=== PATIENT | female | born 1965 | race Caucasian/White ===

== ENCOUNTER 2021-09-16 07:30 | Outpatient (RCR) | payer OTHER, SELFPAY | END 2021-12-31 14:59 | disposition home or self-care (01) | PROVIDERS: PCP Family Medicine; Visit Provider Orthopaedic Surgery | DX: M25.561 Pain in right knee (principal); Z51.89 Encounter for other specified aftercare | CPT/HCPCS: 97110 ==

== ENCOUNTER 2022-04-01 13:59 | Emergency (ER) | payer OTHER, SELFPAY ==
[2022-04-01 14:08] VITALS: BP 154/90; PULSE 69; RESP 16; TEMP 36.4; O2SAT 99
--- NOTE | 2022-04-01 15:02 | CRLHL7_ITS ---
For Patients: As a result of the Cures Act, medical imaging exams and procedure reports are released immediately into your electronic medical record. You may view this report before your referring provider. If you have questions, please contact your health care provider. INDICATION: Balance problems. Near syncopal spells. Blurred vision. TECHNIQUE: Sagittal T1, axial FLAIR, T2, diffusion-weighted and susceptibility weighted images. COMPARISON: MRI brain dated 04/19/2019. FINDINGS: Ventricles normal in size and shape. No evidence of recent ischemic infarction. No areas of diffusion restriction. No evidence of intracranial hemorrhage. No mass effect. Tiny foci of FLAIR/T2 hyperintensity within the cerebral white matter are stable, nonspecific but can be seen as sequela of migraine or mild chronic microvascular ischemia. Brainstem and cerebellum appear normal. The orbits, sella and suprasellar cistern are unremarkable. There is mild inflammatory mucosal thickening in the ethmoid and the air cells. IMPRESSION: 1. No evidence of acute ischemic infarction, intracranial hemorrhage or mass. 2. Few stable, punctate FLAIR/T2 white matter signal changes consistent with migraine or mild chronic microvascular ischemia. 3. No interval changes compared to prior brain MRI 04/19/2019. Dictated by Rangel Vazquez MD @ 04/01/2022 4:27:13 PM (Electronically Signed)
[2022-04-01 15:26] LABS: Basophils Absolute Auto 0.02 K/uL (0.00-0.30); Basophils Percent Auto 0.3 % (0.0-3.0); Eosinophils Absolute Auto 0.07 K/uL (0.00-0.50); Hematocrit 43.7 % (33.0-51.0); Hemoglobin* 14.9 gm/dL (12.0-16.0); Immature Granulocytes Abs Auto 0.05 K/uL (0.00-0.30); Immature Granulocytes Pct Auto 0.7 %; Lymphocytes Absolute Auto 2.89 K/uL (0.90-2.90); Lymphocytes Percent Auto 39.9 % (20-44); Mean Corpuscular HGB Conc 34 gm/dL (32-36); Mean Corpuscular Hemoglobin 30 pg (26-34); Mean Corpuscular Volume 88 fL (80-100); Monocytes Percent Auto 6.6 % (0.0-11.0); Neutrophils Absolute Auto 3.73 K/uL (1.7-7.0); Neutrophils Percent Auto 51.5 % (42.0-72.0); Platelet Count* 200 K/uL (140-440); RDW Coefficient of Variation % 13.7 % (11.5-15.5); Red Blood Count 4.95 m/uL (4.00-5.20); White Blood Count* 7.24 K/uL (4.50-11.00)
[2022-04-01 15:35] LABS: Slide Review Reflex No
[2022-04-01 15:50] LABS: Chloride* 105 mmol/L (96-114); Potassium* 3.3 mmol/L (3.6-5.1); Sodium* 139 mmol/L (135-149)
[2022-04-01 15:53] LABS: Blood Urea Nitrogen* 18 mg/dL (7-30); Carbon Dioxide* 28 mmol/L (20-32); Creatinine* 0.4 mg/dL (0.5-1.5); Estimated Glomerular Filt Rate 115 ml/min
[2022-04-01 15:54] LABS: Calcium* 9.1 mg/dL (8.4-10.6); Glucose* 97 mg/dL (60-115)
[2022-04-01 15:57] LABS: C Reactive Protein* < 0.5 mg/dL (0.5-1.0)
[2022-04-01 18:08] LABS: Erythrocyte SedimentationRate* 9 mm/hr (2-20)
--- NOTE | 2022-04-01 19:04 | ED_ITS ---
HPI - General Adult General Chief complaint: Neck Injury/Pain Stated complaint: Possible Stroke Time Seen by Provider: 04/01/22 14:41 Source: patient Mode of arrival: ambulatory Limitations: no limitations History of Present Illness HPI narrative: Patient is a 56 year old woman sent here from clinic for evaluation of spells over the past couple of weeks. She had gone to clinic for evaluation of her neck pain, which has been a problem for quite some time, but has flared lately due to increased need for care of her adult son with Cerebral Palsy. He lives independently and had a caregiver, but that person recently quit and so she has had to do a lot more physical work in his care. As a result, her neck has been giving her a lot more trouble and she has what she describes a severe pain along both sides of her cervical spine but especially the right, with radiation to the right scapula associated with what used to be intermittent paresthesias in the scapular area but now constant. At times she has tingling down her right arm as well. Symptoms are worsened with any movement of her neck. She has not had recent trauma or fever. 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 She has recovered fully. While at her appointment, she described several episodes in the past couple of weeks of feeling near syncopal/woozy, perhaps off balance although no vertigo.No syncope. This was associated with a sense of blurred vision in the right eye only (she checked by closing each eye) but no loss of vision, mild nausea without vomiting, and headache. Symptoms lasted several hours the first time, but only minutes subsequent times. She had an episode while at clinic and she was referred to the ER to rule out stroke. Currently she is asymptomatic. No more focal neurologic deficits. Related Data Allergies Allergy/AdvReac Type Severity Reaction Status Date / Time latex Allergy Unknown Verified 10/01/21 09:45 Review of Systems Status of ROS: Reports: 10 or more systems reviewed and unremarkable except as noted in History and below [facility] Social History Non-prescribed substance use: denies use Exam Narrative: Exam Narrative: Vital signs as below In general, an alert, well-appearing woman. Conversant, pleasant. Head: Normocephalic, atraumatic Eyes: Pupils are equal and reactive. EOMS full, no nystagmus. ENT: Nares clear. Mucous membranes moist. Neck: Supple. No bruits. Heart: Regular rate and rhythm without murmur. Lungs: Clear. No increased work of breathing. Abdomen: Soft and nontender. Extremities: Well perfused. No edema. Pulses intact. Skin: Warm and dry. No rash or lesion. Neurologic: Alert,speech fluent. Moves all extremities equally. Face symmetric. Cerebellar function intact by finger nose testing. Affect: normal. Const: Vital Signs, click to edit/add: Vital Signs - 24 hr 04/01/22 14:08 Temperature 97.5 F L Pulse Rate [Left P ulse Oximeter] 69 Respiratory Rate 16 Blood Pressure [Ri ght Upper Arm] 154/90 H Pulse Oximetry 99 Oxygen Delivery Me thod Room Air Course Course Hospital Course: Overall, my suspicion for TIA/CVA stroke is low for these episodes as they are very non-specific. Neuro exam is reassuring at this time. I did an EKG which show a NSR and no acute changes. CBC and basic metabolic panel are unremarkable. I checked a CRp and sed rate given her complaints of unilateral vision changes and those are both normal. An MRI of the brain is read by radiology as unchanged from previous, with a few areas of white matter changes which may be due to s mall vessel ischemia or migraine. The headache that follows these episodes does make me wonder about atypical migraine, and she does tell me that her other son has a significant migraine history. In any , I don't find anything concerning on evaluation here, and I think it is reasonable to discharge her with clinic follow up. She is most concerned about her neck pain, which I explained we really can not evaluate fully in the ER. She says the last time she had imaging a few years ago she had herniated discs; I do no have access to those images. I suggested that we try a short course of prednisone and see if that affords any relief, and then I would have her schedule another appointment with Dr. Morales to discuss further. Return at any time for acute worsening of either of her symptom complexes. Vital Signs Vital signs: Initial Vital Signs Temperature 97.5 F L 04/01/22 14:08 Temperature Source Temporal Artery Scan 04/01/22 14:08 Pulse Rate 69 02/21/23 14:08 Pulse Rhythm 04/01/22 14:08 Respiratory Rate 16 04/01/22 14:08 Blood Pressure 154/90 H 04/01/22 14:08 Blood Pressure Mean 111 04/01/22 14:08 Blood Pressure Position Semi-Fowlers 04/01/22 14:08 Pulse Oximetry 99 04/01/22 14:08 Oxygen Delivery Method 04/01/22 14:08 Vital Signs Temperature 97.5 F L 04/01/22 14:08 Pulse Rate 69 04/01/22 14:08 Respiratory Rate 16 04/01/22 14:08 Blood Pressure 154/90 H 04/01/22 14:08 Pulse Oximetry 99 04/01/22 14:08 Oxygen Delivery Method 04/01/22 14:08 Temperature 97.5 F L 04/01/22 14:08 Pulse Rate 69 04/01/22 14:08 Respiratory Rate 16 04/01/22 14:08 Blood Pressure 154/90 H 04/01/22 14:08 Pulse Oximetry 99 04/01/22 14:08 Oxygen Delivery Method 04/01/22 14:08 Medical Decision Making Lab Data Labs: Lab Results 04/01/22 04/01/22 04/01/22 Range/Units 15:15 15:15 15:15 WBC 7.24 (4.50-11.00) K/uL RBC 4.95 (4.00-5.20) m/uL Hgb 14.9 (12.0-16.0) gm/dL Hct 43.7 (33.0-51.0) % MCV 88 (80-100) fL MCH 30 (26-34) pg MCHC 34 (32-36) gm/dL RDW Coeff of Sandra 13.7 (11.5-15.5) % Plt Count 200 (140-440) K/uL Neut % (Auto) 51.5 (42.0-72.0) % Lymph % (Auto) 39.9 (20-44) % Bond % (Auto) 6.6 (0.0-11.0) % Eos % (Auto) 1.0 (0.0-7.0) % Baso % (Auto) 0.3 (0.0-3.0) % Neut # (Auto) 3.73 (1.7-7.0) K/uL Lymph # (Auto) 2.89 (0.90-2.90) K/uL Bond # (Auto) 0.50 (0.00-0.90) K/UL Eos # (Auto) 0.07 (0.00-0.50) K/uL Baso # (Auto) 0.02 (0.00-0.30) K/uL ESR 9 (2-20) mm/hr Sodium 139 (135-149) mmol/L Potassium 3.3 L (3.6-5.1) mmol/L Chloride 105 (96-114) mmol/L Carbon Dioxide 28 (20-32) mmol/L BUN 18 (7-30) mg/dL Creatinine 0.4 L (0.5-1.5) mg/dL Estimated GFR 115 ml/min Glucose 97 (60-115) mg/dL Calcium 9.1 (8.4-10.6) mg/dL C-Reactive Protein < 0.5 L (0.5-1.0) mg/dL Discharge Plan Discharge Clinical Impression: Neck pain on right side, Near syncope Patient Disposition: Home, Self-Care Condition: Stable Instructions: Near Syncope (ED), Neck Pain (ED) Additional Instructions: Prednisone taper as follows: 3 tablets daily for 3 days then 2 tablets daily for 3 days then 1 tablet daily for 3 days. Follow up with Dr. Mendez for your neck pain and I would reassess your other symptoms as well. MRI today does not show any evidence of stroke. The presence of headache following the symptoms raises the possibility of atypical migraine and your MRI does show some findings which can be seen with migraine. Clear diagnosis is not certain at this time. Your EKG and lab work are unremarkable. Follow Up/Referrals: Mily Morales MD [Primary Care Provider] - Stand Alone Forms: [employer] Info Instructions
== END 2022-04-01 16:59 | disposition home or self-care (01) ==
PROVIDERS: Emergency Provider Emergency Medicine; PCP Family Medicine
DX: M54.2 Cervicalgia (principal); R55 Syncope and collapse
CPT/HCPCS: 36415; 70551; 80048; 85025; 85651; 86140; 93005; 99284

== ENCOUNTER 2022-12-16 06:00 | Day surgery (SDC) | payer OTHER, SELFPAY ==
[2022-12-16] VITALS (10 sets, daily range): BP systolic 124–151; BP diastolic 67–87; PULSE 73–84; RESP 16; TEMP 36.5–36.7; O2SAT 96–100
[2022-12-16] MEDS: BUPIVACAINE 0.5% 30 ML INJECTION (07:20)
[2022-12-16] MEDS: lidocaine HCL 2 % MULTIDOSE 20 ML VIAL INJECTION (07:20)
--- NOTE | 2022-12-16 07:43 | PM.ORPRC ---
Procedure Note Date of procedure: 12/16/22 Procedure: Preop diagnosis: Right upper extremity carpal tunnel syndrome Postop diagnosis: Right upper extremity carpal tunnel syndrome Procedure: Right upper extremity carpal tunnel release Anesthesia: Local Surgeon: Maycol Wilkinson MD sales assistant displays: ANTONIO Tran EBL: 5 mL Complications: None Specimens: None Drains: None Indications: The patient has a history of right upper extremity carpal tunnel syndrome symptoms. Despite appropriate nonoperative management consisting of nighttime bracing and occupational therapy they continue to have symptoms. Operative intervention was recommended. The risks, benefits alternatives and expected outcomes were discussed in detail. These included but were not limited to: Infection, bleeding, injury to blood vessel or nerve, venous thromboembolism. All questions were answered to their satisfaction. The patient was placed supine on the operating room table. Local anesthesia was established with 0.5% Marcaine without epinephrine and 2% lidocaine without epinephrine. The hand was prepped and draped in usual sterile fashion. The limb was elevated the forearm pneumatic tourniquet was inflated to 250 mm of mercury. A longitudinal incision was made centered over the radial border of the ring finger at the base of the palm. Subcutaneous dissection was sharply taken through the palmar fascia and the palmaris brevis to the transverse carpal ligament. The ligament was divided in line with the incision. Proximal and distal dissection was carried with tenotomy and Metzenbaum scissors for a wide decompression of the carpal tunnel. The tourniquet was released , bleeding was controlled with direct pressure. The wound was closed with a 3-0 nylon. A bulky dry dressing was applied, sponge and needle counts were correct x 2. The patient tolerated the procedure well, there were no apparent complications. They were sent to same day surgery in satisfactory condition. Plan: Use of the hand as tolerates. Discontinue the intraoperative dressing on postoperative day 3 and may get the wound wet as tolerates. Follow up in the office in 2 weeks for a wound check and suture removal.
== END 2022-12-16 08:11 | disposition home or self-care (01) ==
PROVIDERS: PCP Family Medicine; Visit Provider Orthopaedic Surgery
PROC: (CPT 64721; principal; 2022-12-16 07:15)
DX: G56.01 Carpal tunnel syndrome, right upper limb (principal)
CPT/HCPCS: 64721; J0665

== ENCOUNTER 2023-02-10 10:45 | Outpatient (RCR) | payer OTHER, SELFPAY | END 2023-06-10 23:59 | disposition home or self-care (01) | PROVIDERS: PCP Family Medicine; Visit Provider Family Medicine | DX: M54.2 Cervicalgia (principal); M54.16 Radiculopathy, lumbar region; Z51.89 Encounter for other specified aftercare | CPT/HCPCS: 97012; 97110; 97140; 97162; 97163; 97535 ==

== ENCOUNTER 2024-09-21 20:23 | Emergency (ER) | payer OTHER, SELFPAY ==
[2024-09-21] VITALS (8 sets, daily range): BP systolic 125–141; BP diastolic 84–94; PULSE 75–85; RESP 20; TEMP 37; O2SAT 95–99; BMI 23.2
--- OUTSIDE RECORDS SUMMARY | 2024-09-21 20:25 | XMS_ITS | Clinical Summary ---
Author Organization [facility] Address [address] [place] [address] Care Team Providers Care Armhole Sewer Name Role Phone Mily Morales MD Primary Care Provider [phone] Allergies No known active allergies Medications aspirin 81 MG EC tablet Take 81 mg by mouth daily Active fluticasone-tio meterol (ADVAIR) 500-50 MCG/ACT inhaler Inhale 1 puff into the lungs 2 times daily Active chlorthalidone (HYGROTON) 25 MG tablet Take 25 mg by mouth daily Active thyroid (ARMOUR) 15 MG tablet Take 15 mg by mouth daily Active potassium chloride ER (KLOR-CON M) 10 MEQ CR tablet Take 10 mEq by mouth daily Active gabapentin (NEURONTIN) 300 MG capsule Take 300 mg by mouth At Bedtime Active rosuvastatin (CRESTOR) 5 MG tablet Take 5 mg by mouth daily Active Active Problems Problem Noted Date Diagnosed Date History of colonic polyps 06/24/2022 Overview (06/24/2022): h/o dysplasia Social History Tobacco Use Types Packs/Day Years Used Date Smoking Tobacco: Never Smokeless Tobacco: Never Alcohol Use Standard Drinks/Week Comments Yes 0 (1 standard drink = 0.6 oz pur e alcohol) occassional Adolescent Education Answer Date Record ed Getting School Help Needed Not on file 10/31 Comments Unknown Sex and Gender Information Value Date Recorded Sex Assigned at Not on file Legal Sex Female 9:08 AM CDT Gender Identity Not on file Sexual Orientation Not on file Last Filed Vital Signs Vital Sign Reading Time Taken Comments Blood Pressure 138/82 06/24/2022 8:40 AM CDT Pulse 83 06/24/2022 8:30 AM CDT Temperature 36.5 C (97.7 F) 06/24/2022 7:27 AM CDT Respiratory Rate 16 06/24/2022 8:40 AM CDT Oxygen Saturation 97% 06/24/2022 8:40 AM CDT Inhaled Oxygen Concentration - - Weight 67.6 kg (149 lb) 06/24/2022 7:27 AM CDT Height 154.9 cm (5' 1) 06/24/2022 7:27 AM CDT Body Mass Index 28.15 06/24/2022 7:27 AM CDT Plan of Treatment Health Maintenance Due Date Last Done Comments ADVANCE CARE PLANNING 1965 ANNUAL REVIEW OF HM ORDERS 1963 CT COLONOGRAPHY 1965 DIABETES SCREENING 1965 FIT 1965 FLEX SIG 1965 LIPID 1965 TSH W/FREE T4 REFLEX 1965 sDNA (Cologuard) 1965 HIV SCREENING 10/27/1978 HEPATITIS C SCREENING 10/27/1981 PAP 10/27/1984 YEARLY PREVENTIVE VISIT 08/06/2022 08/07/19 22, 06/14/2020, 07/04/2004 COVID-19 VACCINE ( season) 2023 2021, 06/12/2021, 09/26/2020, Additional history exists PHQ-2 (once per calendar year) 2024 MAMMO SCREENING 04/23/2024 04/23/2022 INFLUENZA VACCINE (#1) 2024 2, 10/23/2020, 10/18/2019, Additional history exists COLONOSCOPY 06/25/2027 06/24/2022, 06/24/2022 COLORECTAL CANCER SCREENING 06/25/2027 DTAP/TDAP/TD VACCINE (3 - Td or Tdap) 08/07/2030 08/07/2020, 10/23/2009, 03/11/2003 RSV VACCINE (1 - 1-dose 75+ series) 10/27/2038 PNEUMOCOCCAL VACCINE 50+ YEARS Completed 03/12/2016, 03/10/2016, 12/06/2004 ZOSTER VACCINE Completed 10/03/2021, 08/06/2021 HPV VACCINE (No Doses Required) Completed MENINGITIS VACCINE Aged Out No longer eligible based on patient's age to complete this topic Procedures Procedure Name Priority Date/Time Associated Diagnosis Comments COLONOSCOPY Routine 06/24/2022 7:10 AM CDT from Last 3 Months or Most Recently Relevant to Health Maintenance Results * COLONOSCOPY (06/24/2022 7:10 AM CDT) COLONOSCOPY [facility] Patient Name: Tea Scott Procedure Date: 06/24/2022 7:10 AM Date of : 1965 Admit Type: Outpatient Age: 56 Gender: Female Attending MD: LINDA MCNEIL MD, Total Sedation Time: 20 minutes of continuous bedside 1:1. IT: 8m, WDT: 10m Instrument Name: 218 - Pediatric Colonoscope Procedure: Colonoscopy Indications: Colon cancer screening in patient at increased risk: Family history of 1st-degree relative with colon polyps before age 60 years Providers: LINDA MCNEIL MD (Doctor) Referring MD: Medicines: Fentanyl 150 micrograms IV, Midazolam 2 mg IV Complications: No immediate complications. Procedure: Pre-Anesthesia Assessment: - Prior to the procedure, a History and Physical was performed, and patient medications and allergies were reviewed. The patient is competent. The risks and benefits of the procedure and the sedation options and risks were discussed with the patient. All questions were answered and informed consent was obtained. Patient identification and proposed procedure were verified by the physician and the nurse in the endoscopy suite. Mental Status Examination: alert and oriented. Airway Examination: normal oropharyngeal airway and neck mobility. Respiratory Examination: clear to auscultation. CV Examination: normal. Prophylactic Antibiotics: The patient does not require prophylactic antibiotics. Prior Anticoagulants: The patient has taken no anticoagulant or antiplatelet agents. ASA Grade Assessment: II - A patient with mild systemic disease. After reviewing the risks and benefits, the patient was deemed in satisfactory condition to undergo the procedure. The anesthesia plan was to use moderate sedation / analgesia (conscious sedation). Immediately prior to administration of medications, the patient was re-assessed for adequacy to receive sedatives. The heart rate, respiratory rate, oxygen saturations, blood pressure, adequacy of pulmonary ventilation, and response to care were monitored throughout the procedure. The physical status of the patient was re-assessed after the procedure. After obtaining informed consent, the colonoscope was passed under direct vision. Throughout the procedure, the patient's blood pressure, pulse, and oxygen saturations were monitored continuously. The Olympus, Pediatric Colonoscope, Model # [id number], [employer] # [id number], SN # [id number] was introduced through the anus and advanced to 5 cm into the ileum. The colonoscopy was performed with ease. The patient tolerated the procedure well. The quality of the bowel preparation was excellent. The terminal ileum, ileocecal valve, appendiceal orifice, and rectum were photographed. Findings: The perianal and digital rectal examinations were normal. Pertinent negatives include normal sphincter tone and no palpable rectal lesions. The terminal ileum appeared normal. The entire examined colon appeared normal on direct and retroflexion views. Impression: - The examined portion of the ileum was normal. - The entire examined colon is normal on direct and retroflexion views. - No specimens collected. Recommendation: - Repeat colonoscopy in 5 years for screening purposes. Procedure Code(s): --- Professional --- 72997, Colonoscopy, flexible; diagnostic, including collection of specimen(s) by brushing or washing, when performed (separate procedure) Diagnosis Code(s): --- Professional --- Z83.71, Family history of colonic polyps CPT copyright 2020 [employer]. All rights reserved. The codes documented in this report are preliminary and upon bag machine set up operator review may be revised to meet current compliance requirements. ____ LINDA MCNEIL MD 06/24/2022 8:05:27 AM I was physically present for the entire viewing portion of the exam. LINDA MCNEIL MD Number of Addenda: 0 Note Initiated On: 06/24/2022 7:10 AM Procedure Date: 06/24/2022 7:10:06 AM Scope Withdrawal Time: 0 hours 10 minutes 3 seconds Total Procedure Duration: 0 hours 17 minutes 36 seconds Estimated Blood Loss: Scope In: 7:42:56 AM Scope Out: 8:00:32 AM RADIOLOGY RESULTS 06/24/2022 7:10 AM CDT Linda Mcneil MD PROCEDURES Final Resu lt RADIOLOGY RESULTS from Last 3 Months or Most Recently Relevant to Health Maintenance Insurance [employer] Care Teams Armhole Sewer Relationship Specialty Start Date End Date Mily Morales MD [facility] [address] [place] [address] PCP - General Family Medicine 06/19/22
--- OUTSIDE RECORDS SUMMARY | 2024-09-21 20:25 | XMS_ITS | Clinical Summary ---
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 05/18/2024 11:24 AM CDT 05/18/2024 11:25 AM CDT Mily Morales MD CHEMISTRY Final Resul t [employer] [place] [address] [facility] [place] [address], [facility] [address] [facility] [place] [address] * HPV HIGH RISK (02/19/2024 10:32 AM AGRICULTURAL PRODUCE PACKER) TYPE 16 Negative Negative 02/24/2024 6:03 AM AGRICULTURAL PRODUCE PACKER [facility] TYPE 18 Negative Negative 02/24/2024 6:03 AM AGRICULTURAL PRODUCE PACKER [facility] OTHER HIGH RISK TYPES Negative Negative 02/24/2024 6:03 AM AGRICULTURAL PRODUCE PACKER [facility] Other VAGINAL SWAB / Unknown Non-Blood / Unknown 02/19/2024 10:32 AM AGRICULTURAL PRODUCE PACKER 02/22/2024 10:05 AM AGRICULTURAL PRODUCE PACKER Narrative [facility] - 02/24/2024 6:03 AM AGRICULTURAL PRODUCE PACKER HPV types 16, 18, 31, 33, 35, 39, 45, 51, 52, 56, 58, 59, 66 and 68 DNA were undetectable or below the pre-set threshold. Methodology: Maria Victoria Evangelina 4800 HPV Test Mily Morales MD MICROBIOLOGY Final Resul t [facility] [address] [place] [address], * COLONOSCOPY SCREENING (12/21/2017) Mily Morales MD GI PROCEDURE ORD Final Resu lt * ANTI HCV (02/19/2011 7:58 PM AGRICULTURAL PRODUCE PACKER) ANTI HCV Non-reacti ve [facility] Blood specimen (specimen) BLOOD SPECIMEN / Unknown 02/19/2011 7:58 PM AGRICULTURAL PRODUCE PACKER 02/19/2011 7:49 PM AGRICULTURAL PRODUCE PACKER us Bhakti GRIFFIN SEND OUTS Final Resu lt [facility] INTERNAL ZIP [address] [address] * ANTI HIV 1/2 (02/19/2011 7:58 PM AGRICULTURAL PRODUCE PACKER) ANTI HIV 1/2 Non-reacti ve [facility] Blood specimen (specimen) BLOOD SPECIMEN / Unknown 02/19/2011 7:58 PM AGRICULTURAL PRODUCE PACKER 02/19/2011 7:49 PM AGRICULTURAL PRODUCE PACKER us Bhakti GRIFFIN SEND OUTS Final Resu lt [facility] INTERNAL ZIP [address] [address] from Last 3 Months or Most Recently Relevant to Health Maintenance Insurance ELEN EMMANUEL [id number] [employer] HB ONLY . [facility]N: [facility] [place] [address] MEDICARE PART A HB ONLY [place]OLO[place]EN [place]APTIST[place] [id number] HP [place] [id number] [facility] HP Advance Directives * Full Code (Latest Code Status on File) Date Activated Date Inactivated Comments 11/17/2019 2:37 PM 11/17/2019 7:38 PM Question Answer Comments Code Status Discussion: Not Discussed * Full Code Date Activated Date Inactivated Comments 04/14/2019 10:05 AM 04/14/2019 1:14 PM Question Answer Comments Code Status Discussion: Not Discussed * Full Code Date Activated Date Inactivated Comments 04/13/2019 10:00 AM 04/13/2019 10:12 AM * Full Code Date Activated Date Inactivated Comments 05/14/2016 2:03 PM 05/16/2016 1:50 PM * Full Code Date Activated Date Inactivated Comments 04/20/2015 7:37 PM 04/23/2015 6:49 PM Care Teams Radiologic Electronic Specialist Relationship Specialty Start Date End Date Mily Morales MD [address] [place] [address] PCP - General Family Practice 11/19/16 Louie Hamlin MD, PhD [address] [place] [address] Allergy and Immunology 05/12/19
--- OUTSIDE RECORDS SUMMARY | 2024-09-21 20:25 | XMS_ITS ---
Author Organization [employer] Address [address] [address] Care Team Providers Care Permanent Waver Name Role Phone Mily Morales MD Primary Care Provider [phone] Active Problems Problem Noted Date Diagnosed Date Malignant basal cell neoplasm of skin 04/20/2020 Overview (04/20/2020): 2008 At high risk for breast cancer 04/06/2020 Overview (04/20/2020): atypical lobular hyperplasia of the left breast Follows at [facility]. mammos and mri alternating every 6 months. 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 Renal cyst, right 08/27/2016 History of cerebrovascular accident 05/21/2016 Left hemiplegia 05/15/2016 Osteopenia 04/30/2016 Hypertrophic cardiomyopathy 03/19/2016 Other specified disorders of arteries and arteri oles 03/10/2016 Pulmonary eosinophilia 03/07/2016 Dysplasia of cervix 07/04/2004 Overview (11/09/2014): Epic Pure hypercholesterolemia 03/31/2003 Hypothyroidism 03/31/2003 Overview (11/09/2014): Epic Other acne 03/31/2003 Steroid-dependent asthma 03/31/2003 Herpes simplex virus (HSV) infection 03/31/2003 Overview (11/09/2014): recurrant severe cold sores, responds to acyclovir Epic Current Treatment and Therapy Plans No current plan information found. Past Treatment and Therapy Plans No past plan information found. Lifetime Dose Tracking * Chemical Lifetime Dose Automatic Entry Manual Entr y Fluoro Time 2.2 minutes 2.2 minutes 0 minutes Total Air Kerma 2.21 mGy 2.21 mGy 0 mGy
--- OUTSIDE RECORDS SUMMARY | 2024-09-21 20:25 | XMS_ITS | Encounter Summary ---
Author Organization [facility] Address [address] [place] [address] Care Team Providers Care Generator Man Name Role Phone Unavailable Primary Care Provider Unavailabl e Reason for Visit * Reason Comments Med Refill Encounter Details Date Type Department Care Team (Late st Contact Info) Description 08/16/2024 Refill Division of Allergic Diseases in [place], [place] [address] [place] [phone] Louie Hamlin, M.B.B.S., Ph.D. [address] [place] [address] Med Refill Social History Tobacco Use Types Packs/Day Years Used Date Smoking Tobacco: Never Passive Smoke Exposure: Never Smokeless Tobacco: Never Alcohol Use Standard Drinks/Week Comments Yes 0 (1 standard drink = 0.6 oz pur e alcohol) occasionally Hunger Vital Sign Answer Date Recorded Within the past 12 months, y ou worried that your food would run out before you got the money to buy more. Never true 12/13/19 23 Within the past 12 months, t he food you bought just didn't last and you didn't have money to get more. Never true 12/12/2022 PRAPARE - Transportation Answer Date Re corded In the past 12 months, has l ack of transportation kept you from medical appointments or from getting medications? No 04/2022 In the past 12 months, has l ack of transportation kept you from meetings, work, or from getting things needed for daily living? No 12/12/2022 Housing Stability Answer Date Recorded What is your living situation today? I have a [place] place to live 12/12/2022 Education Answer Date Recorded What is the highest level of school you have completed or the highest degree you have received? 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
--- OUTSIDE RECORDS SUMMARY | 2024-09-21 20:25 | XMS_ITS | Encounter Summary ---
Author Organization [facility] Address [address] [place] [address] Care Team Providers Care Office Associate Name Role Phone Unavailable Primary Care Provider Unavailabl e Encounter Details Date Type Department Care Team (Late st Contact Info) Description 05/07/2016 Historical Ophthalmology [facility] O[facility] Cullen Benson M.D. 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 - 05/07/2016 5:21 PM CDT Eye General CHIEF COMPLAINT high pressures and blurry vision HISTORY OF PRESENT ILLNESS Pain; both eyes; x 1 day; constantly; symptoms reported at level of 7-8/10. She woke up with pain in both of her eyes, left eye worse than the right eye. She had her pressure taken this morning (12:30pm) and it was 26 both eyes. She notes her vision is now blurry. Around 2-3pm she noticed her eyes started to become blurry. Now it is more of a blurred haze. Feels like a bad sinus infection in the corner of both of her eyes. 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 However, she now has patent LPIs bilaterally and I would expect this to have improved unless she has plateau iris. It is also possible that she is steroid responsive and having high IOP as a result. However, her IOP is normal today and one would expect her IOP to be constantly elevated if it was steroid response ocular HTN. Plan is to have her start latanoprost OU and return as scheduled in 2 weeks with testing. Will also get CCTs atthat time and repeat gonio. 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 Currently no evidence of ocular involvement of a systemic inflammatory condition. Will complete dilated exam at follow-up in 2 weeks. 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
--- OUTSIDE RECORDS SUMMARY | 2024-09-21 20:25 | XMS_ITS | Clinical Summary ---
Author Organization [facility] Address [address] [place] [address] Care Team Providers Care Frothing Machine Operator Name Role Phone Mily Morales Primary Care Provider [phone] Allergies Active Allergy Reactions Criticality Noted Date Comments House Dust Runny Nose 06/16/2014 Latex Rash Low 04/20/2015 Pt stated mild reaction to latex. Pt wears latex free gloves at work. Mold Runny Nose 06/16/2014 Ragweed Pollen Other 03/07/2016 Wheezing & Sinus Congestion Medications docusate sodium (COLACE) 100 mg oral capsule Take 200 mg by mouth once daily. Active naproxen sodium 220 mg oral tablet Take 220 mg by mouth once daily. Active valACYclovir (VALTREX) 1 gram oral tablet Take 1 gm PO BID x 2 doses as need for cold sores Active verapamiL (VERELAN) 180 mg oral C24P Take 180 mg by mouth every morning. Active albuterol, conc: 2.5 mg/3 mL, (PROVENTIL, VENTOLIN) Inhl nebulizer solution 3 Active VENTOLIN HFA 90 mcg/actuation Inhl inhaler INHALE 2 PUFFS BY MOUTH EVERY 6 HOURS NEEDED FOR SHORTNESS OF BREATH 3 Active chlorthalidone (HYGROTON) 25 mg oral tablet 3 Active fluconazole (DIFLUCAN) 150 mg oral tablet 3 Active ADVAIR HFA 230-21 mcg/actuation Inhl HFAA inhaler 3 Active fluticasone (FLONASE) 50 mcg/actuation nasal spray INSTILL 1 SPRAY IN EACH NOSTRIL EVERY DAY 3 Active albuterol-iprat ropium, conc: 3-0.5mg/3mL, (DUO-NEB) Inhl nebulizer solution USE 3 ML VIA NEBULIZER EVERY 6 HOURS NEEDED FOR SHORTNESS OF BREATH OR WHEEZING 3 Active NUCALA 100 mg/mL SubQ auto-injector 3 Active methylPREDNISol one (MEDROL DOSPAK) 4 mg oral dospak FOLLOW PACKAGE DIRECTIONS 3 Active naproxen (NAPROSYN) 375 mg oral tablet 3 Active nystatin (MYCOSTATIN) 100,000 unit/mL oral suspension SWISH AND SWALLOW 5 ML BY MOUTH FOUR TIMES DAILY FOR 10 DAYS 3 Active potassium chloride (K-DUR) 10 mEq oral extended release tablet 3 Active rosuvastatin (CRESTOR) 5 mg oral tablet 3 Active SANITARIAN THYROID 30 mg oral tablet Take 15 mg by mouth once daily. 3 Active ascorbic acid, vitamin C, 125 mg oral chew tab Chew 125 mg Daily. Active aspirin 81 mg oral enteric coated tablet Take 81 mg by mouth. Active Cholecalciferol , Vitamin D3, 5,000 unit (125 mcg) oral tablet Take 5,000 Units by mouth Daily. Active Clindamycin Phosphate 1 % Top Swab Apply to skin twice a day. 3 Active cyanocobalamin 1,000 mcg oral tablet Take 1,000 mcg by mouth Daily. Active gabapentin (NEURONTIN) 300 mg oral capsule Take by mouth. 3 Active cycloSPORINE (RESTASIS MULTIDOSE) 0.05 % Opht Drop Instill 1 drop into the eye twice a day. 2 Active ofloxacin 0.3% (OCUFLOX) 0.3 % Opht ophthalmic (EYE) solution Instill 1 drop into the eye. 3 Active olopatadine 0.1% (PATANOL) 0.1 % Opht ophthalmic (EYE) solution Instill 1 drop into the eye twice a day. 3 Active tretinoin (RETIN-A) 0.025 % Top Gel topical gel Apply to skin Daily. 3 Active triamcinolone acetonide (KENALOG) 0.1 % Top ointment Apply to skin. 2 Active Active Problems Problem Noted Date Diagnosed Date Macromastia 10/01/[address] 09/26/2022 Overview (09/26/2022): Overview: infection? did not have fu CT scan was in 2004 Dysplastic nevus 09/26/2022 Overview (09/26/2022): Overview: numerous Family history of clotting disorder 09/26/2022 History of cone biopsy of cervix 09/26/2022 Hypercholesteremia 09/26/2022 Overview (09/26/2022): Overview: not on medications was on Mevecor at one time Hypothyroid 09/26/2022 Overview (09/26/2022): Overview: not on any medications at this time Kidney stone 09/26/2022 Malignant basal cell neoplasm of skin 09/26/2022 Overview (09/26/2022): Overview: 2007 History of colonic polyps 06/24/2022 Overview (10/01/2022): h/o dysplasia RBBB (right bundle branch block) 08/06/2021 Hyperopia of both eyes with astigmatism and pres byopia 09/24/2020 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 mammos and mri alternating every 6 months. Left breast mass 04/06/2020 Chronic midline low back pain with left-sided sc iatica 10/15/2018 Controlled substance agreement signed 10/15/2018 Overview (10/01/2022): No more than 30 tramadol/[address] Morales managing as of 10/15/2018. 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 03/22/2011 Malaise and fatigue 09/29/2008 Other acne 05/14/2007 Dysplasia of cervix 07/04/2004 Overview (10/01/2022): Epic Herpes simplex virus (HSV) infection 03/31/2003 Overview (10/01/2022): recurrant severe cold sores, responds to acyclovir Epic Steroid-dependent asthma 03/31/2003 Family History Medical History Relation Comments Coronary Heart Disease Father High Blood Pressure Father Asthma Mother COPD Mother Cancer Mother Depression Mother High Blood Pressure Mother Relation Status Comments Father Mother Social History Tobacco Use Types Packs/Day Years Used Date Smoking Tobacco: Never Smokeless Tobacco: Never Comments Unknown Sex and Gender Information Value Date Recorded Sex Assigned at Not on file 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 Gender Identity Not on file Sexual Orientation Not on file Last Filed Vital Signs Vital Sign Reading Time Taken Comments Blood Pressure - - Pulse - - Temperature - - Respiratory Rate - - Oxygen Saturation - - Inhaled Oxygen Concentration - - Weight 55.3 kg (122 lb) 04/28/2024 8:36 AM CDT Height 154.9 cm (5' 1) 04/28/2024 8:36 AM CDT Body Mass Index 23.05 04/28/2024 8:36 AM CDT Plan of Treatment Health Maintenance Due Date Last Done Comments Colonoscopy 1965 Eye Exam 1965 HgbA1C 1963 Microalbumin Q12 Month 1963 Pap Smear 1963 Anxiety Screening (WESLEY-2) 10/27/1964 Depression Assessment (PHQ-2) 10/27/1964 Yearly Review of HCD 10/27/2013 Influenza Vaccine (#1) 2024 , 10/10/2022, 2021, Additional history exists Creatinine 02/18/2025 02/19/2024, 06/0 07/2022, 11/08/2020 Thyroid-Stimulating Hormone (TSH) 03/09/2025 03/09/2024, 02/19/2024 Mammogram Screening 05/20/2025 05/21/2023, 05/21/2023, 04/23/2022, Additional history exists Adult Tetanus Booster 08/07/2030 08/07/2020 , 10/23/2009, 03/11/2003 Hepatitis C Screening Completed 02/19/2011 Zoster Vaccine Completed 10/03/2021, 08/06/2021 COVID-19 Vaccine Completed 10/11/2023, , 2021, Additional history exists Pneumococcal 50+ Years Completed , 03/12/2016, 03/10/2016, Additional history exists RSV Vaccines Completed 03/09/2024 Meningococcal B Vaccine Aged Out No l onger eligible based on patient's age to complete this topic Insurance [facility] OPEN [facility]ESS/CHOICE [facility] OPEN ACCESS/CHOICE HEALTHKiw[facility] OPEN ACCESS/CHOICE ELEN EMMANUEL [id number] Care Teams Frothing Machine Operator Relationship Specialty Start Date End Date Mily Morales [address] [facility] [id number] PCP - General Family Medicine 10/01/22
--- OUTSIDE RECORDS SUMMARY | 2024-09-21 20:25 | XMS_ITS | Encounter Summary ---
Author Organization [facility] Address [address] [place] [address] Care Team Providers Care Outsole Compressor Name Role Phone Unavailable Primary Care Provider Unavailabl e Encounter Details Date Type Department Care Team (Late st Contact Info) Description 03/24/2017 Historical Ophthalmology RST OPH Katarina Ellis M.D. 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 - 03/24/2017 1:27 PM CST Eye General CHIEF COMPLAINT hazy vision, blurred, headache; both eyes. HISTORY OF PRESENT ILLNESS Hazy vision; both eyes; left eye is worst then the right eye; x 4 days; constant. Blurred vision; both eyes; left eye is worst then the right eye x 4 days; constantly. Headache; behind both eyes; x 4days; constantly; symptoms reported at level of 4/10, reported at level of 7/10. Patient states that she has this before, Patient states that she did have a small stroke in 05/2016, patient denies anyfurther concerns at this time. KPK: Patient left before she could be evaluated. CD Reports - [facility] Id: [id number] Status: Fnl documented in this encounter Plan of Treatment Not on file documented as of this encounter Visit Diagnoses Not on filedocumented in this encounter Additional Health Concerns Infection Onset Date Last Indicated Resolved Time COVID19 Pending 12/13/2020 12/13/2020 12/13/2020 4 :20 PM CDT documented as of this encounter
--- OUTSIDE RECORDS SUMMARY | 2024-09-21 20:25 | XMS_ITS | Encounter Summary ---
Author Organization [facility] Address [address] [place] [address] Care Team Providers Care Office Copy Selector Name Role Phone Unavailable Primary Care Provider Unavailabl e Encounter Details Date Type Department Care Team (Late st Contact Info) Description 03/20/2016 Historical Ophthalmology RST OPH Martina Montgomery, C.O.A. 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 Gender Identity Female 10/12/2019 12:44 PM CDT Sexual Orientation Straight 10/12/2019 12 :44 PM CDT documented as of this encounter Progress Notes * Martina Montgomery - 03/20/2016 11:43 AM CST Eye Subsequent Visit HISTORY OF PRESENT ILLNESS Yag; IOP Check Both eyes CDM Reports - [facility] Id: [id number] Status: Fnl documented in this encounter Plan of Treatment Not on file documented as of this encounter Visit Diagnoses Not on filedocumented in this encounter Additional Health Concerns Infection Onset Date Last Indicated Resolved Time COVID19 Pending 12/13/2020 12/13/2020 12/13/2020 4 :20 PM CDT documented as of this encounter
--- OUTSIDE RECORDS SUMMARY | 2024-09-21 20:25 | XMS_ITS | Clinical Summary ---
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 [facility] Allergies Active Allergy Reactions Criticality Noted Date Comments Epinephrine Hypotension Medium 04/20/2015 Patient stated she had a reaction/hypotension to lidocaine with epinephrine when it was used for a procedure she had. Latex Rash Low 04/20/2015 Pt stated mild reaction to latex. Pt wears latex free gloves at work. Medications ALBUTEROL 90 MCG/ACT IN AERSIndication s:Unspecified asthma(493.90) ([facility]) INHALE 2 PUFFS BY MOUTH FOUR TIMES A DAY NEEDED 1 6 6 Active FLOVENT HFA 220 MCG/ACT inhaler Inhale 2 Puffs two times a day. Part of yellow zone add on inhaler 0 Active fluticasone propionate (FLONASE) 50 MCG/ACT nasal solution SHAKE LIQUID AND USE 1 SPRAY IN EACH NOSTRIL EVERY DAY 1 Active gabapentin (NEURONTIN) 300 MG capsule Take 300 mg by mouth daily at bedtime. 1 Active NUCALA 100 MG/ML SOAJ Inject 100 mg subcutaneously every 4 weeks. 1 Active naproxen (NAPROSYN) 375 MG tablet Take 375 mg by mouth two times a day with meals. 0 Active vitamin B-12 (AKA: CYANOCOBALAMIN ) 1000 MCG tablet Take 1,000 mcg by mouth daily. Active Rhubarb (ESTROVEN COMPLETE OR) Take 1 Tablet by mouth daily. Active DOCUSATE SODIUM OR Take 1 Tablet by mouth daily as needed. Active azelaic acid (FINACEA) 15 % gel Apply topically to affected area twice daily 1 Active COMBIVENT RESPIMAT 20-100 MCG/ACT inhaler Inhale 1 Puff 4 times a day. 1 Active thyroid (ARMOUR THYROID) 30 MG tablet Take 30 mg by mouth daily. Active fluticasone-sa lmeterol (ADVAIR HFA) 230-21 mcg/actuation inhaler Inhale 2 Puffs two times a day. Rinse mouth/gargle after use Active Cholecalcifero l (VITAMIN D-3) 125 MCG (5000 UT) TABS Take 5,000 Units by mouth daily. Active Ascorbic Acid (VITAMIN C) 125 MG CHEW Chew and swallow 125 mg by mouth daily. Active aspirin EC 81 MG enteric coated tabletIndicati ons:Prevent blood clots, CVA Take 1 Tablet by mouth daily. Take 2 tablets (162 mg) daily until 02/24/2021 and then resume regular 81 mg dose daily. Indications: Prevent blood clots, CVA 100 Each 3 2 Active hydrOXYzine pamoate (VISTARIL) 25 MG capsuleIndicat ions:pain, anxiety, itching, muscle spasms Take 1-2 Capsules by mouth every 6 hours as needed for Anxiety, Pain or Itching. Indications: pain, anxiety, itching, muscle spasms 40 Capsule 2 Active oxyCODONE (ROXICODONE) 5 MG immediate release tabletIndicati ons:Acute Pain Take 1-2 Tablets by mouth every 6 hours as needed for Pain. Indications: Acute Pain 30 Tablet 2 Active Active Problems Problem Noted Date Diagnosed Date Malignant basal cell neoplasm of skin 04/20/2020 Overview (04/20/2020): 2008 At high risk for breast cancer 04/06/2020 Overview (04/20/2020): atypical lobular hyperplasia of the left breast Follows at [facility]. 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 (HSV) infection 03/31/2003 Overview (11/09/2014): recurrant severe cold sores, responds to acyclovir [facility] Immunizations Immunization Administration Dates Next Due Flu Vac (3+ yrs) 01/12/2006,12/06/2004, 4 PPSV23 (Pneumovax) 12/06/2004 Td 03/11/2003 Family History Medical History Relation Name Comments Coronary Artery Disease Father age 38 Coronary Artery Disease Mother age 48 Hyperlipidemia Mother Cancer, Melanoma Maternal Grandfather Cerebrovascular Disease Maternal Grandfather Cancer, Breast Maternal Grandmother Cancer, Melanoma Maternal Grandmother Cerebrovascular Disease Maternal Grandmother Hypertension Maternal Grandmother Thyroid Disorder Maternal Grandmother Diabetes, Type II Other maternal u ncle Relation Name Status Comments Father Mother Maternal Grandfather Maternal Grandmother Other Social History Tobacco Use Types Packs/Day Years Used Date Smoking Tobacco: Never Smokeless Tobacco: Never Alcohol Use Standard Drinks/Week Comments Yes 0 (1 standard drink = 0.6 oz pur e alcohol) social PHQ-2 Answer Date Recorded PHQ-2 Score 0 04/20/2020 Comments No Sex and Gender Information Value Date Recorded Sex Assigned at Not on file Legal Sex Female 5:34 AM CDT Gender Identity Not on file Sexual Orientation Not on file 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 Not on file Not on file Not on file Last Filed Vital Signs Vital Sign Reading Time Taken Comments Blood Pressure 145/77 01/30/2021 6:00 AM CLOTH BLEACHING RANGE OPERATOR CHIEF Pulse 85 01/30/2021 6:00 AM CLOTH BLEACHING RANGE OPERATOR CHIEF Temperature 37.1 C (98.7 F) 01/30/2021 6:00 AM CLOTH BLEACHING RANGE OPERATOR CHIEF Respiratory Rate 16 01/30/2021 6:00 AM CLOTH BLEACHING RANGE OPERATOR CHIEF Oxygen Saturation 98% 01/30/2021 6:00 AM CLOTH BLEACHING RANGE OPERATOR CHIEF Inhaled Oxygen Concentration - - Weight 63.5 kg (140 lb) 01/27/2021 6:11 AM CLOTH BLEACHING RANGE OPERATOR CHIEF Height 154.9 cm (5' 1) 01/27/2021 6:11 AM CLOTH BLEACHING RANGE OPERATOR CHIEF Body Mass Index 26.45 01/27/2021 6:11 AM CLOTH BLEACHING RANGE OPERATOR CHIEF Plan of Treatment Health Maintenance Due Date Last Done Comments Cervical Cancer Screening Due 1965 Hep C Screening (Preventive Services) 1965 HIV Screening (Preventive Services) 1979 Adult Preventive Visit 07/04/2005 07/04/2004 Cholesterol 10/27/2008 Zoster/Shingles Vaccine (1 of 2) 10/27/2013 Pneumococcal Vaccine 50+ Yrs (3 of 3 - PCV) 03/12/2021 03/12/2016, 03/10/2016, 12/06/2004 FIT Colon Cancer Screening 12/10/2021 12/10/2020 Mammogram 04/09/2022 04/09/2021, 03/13, 08/30/2013 COVID-19 Vaccine ( season) 2023 09/26/2020, 05/24/2020, 04/25/2020 Influenza Vaccine (#1) 2024 , 10/18/2019, 10/19/2018, Additional history exists DTaP/Tdap/Td Vaccine (3 - Tdap) 08/07/2030 08/07/2020, 10/23/2009, 03/11/2003 RSV Vaccine (1 - 1-dose 75+ series) 10/27/2038 HepA Vaccine Aged Out 10/23/2009, 11/09, 09/28/2007 No longer eligible based on patient's age to complete this topic HepB Vaccine Aged Out No longer eligi ble based on patient's age to complete this topic Hib Vaccine Aged Out No longer eligi ble based on patient's age to complete this topic IPV (Polio) Vaccine Aged Out No longe r eligible based on patient's age to complete this topic MCV4 Vaccine Aged Out No longer eligi ble based on patient's age to complete this topic Meningococcal B Vaccine Aged Out No l onger eligible based on patient's age to complete this topic Medical Devices Implanted Type Area Toll Mechanic Device Identifier Shelf Expiration Date Model / Serial / Lot 5.0 X 28mm Locking Im Nail Screw Synthes Implanted:Qty : 1 on 01/27/2021 by Jose Alejandro Ibanez MD at [facility] DEVICE Right: TIBIA MIDSHAFT [employer] - Trauma 04.045.02 8 / / Description:5.0mm locking IM nail screw synthes Tibial Nail - Advanced 10 X 315mm -St Implanted:Qty : 1 on 01/27/2021 by Jose Alejandro Ibanez MD at [facility] DEVICE Right: TIBIA MIDSHAFT [employer] - Trauma 09/08/2030 04.043.22 5S / NA / [id number] Description:tibial nail 3.0 X 36mm Locking Screw For Im Nail Xl25 - St Implanted:Qty : 1 on 01/27/2021 by Jose Alejandro Ibanez MD at [facility] DEVICE Right: TIBIA MIDSHAFT [employer] - Trauma 08/08/2030 04.045.03 6S / / [id number] Description:locking screw 36 mm 3.0 X 34mm Locking Screw For Im Nail Xl25 - St Implanted:Qty : 1 on 01/27/2021 by Jose Alejandro Ibanez MD at [facility] DEVICE Right: TIBIA MIDSHAFT [employer] - Trauma 11/08/2030 04.045.03 4S / NA / [id number] Description:locking screw 34 mm Procedures Procedure Name Priority Date/Time Associated Diagnosis Comments FIT,OCCULT BLOOD, STOOL Routine 12/10/2020 7:45 AM CDT Screening for colon cancer from Last 3 Months or Most Recently Relevant to Health Maintenance Results * FIT Colon Rectal Cancer Screening (12/10/2020 7:45 AM CDT) FIT Specimen 1 Negative Negative 12/14/2020 12:37 PM CDT [facility] Stool 12/10/2020 7:45 AM CDT 12/13/2020 3:17 PM CDT us Dulce Maria White PA-C LAB_1 Final Resul t [facility] [address] [phone] from Last 3 Months or Most Recently Relevant to Health Maintenance Insurance [employer]EL[employer] INSURED FED[employer] SELF INSURED MEDICARE PART A FED[employer] SELF INSURED COMM SELF INSURED DENTAL Advance Directives * Full Code (Latest Code Status on File) Date Activated Date Inactivated Comments 01/26/2021 9:29 PM 01/30/2021 12:57 PM Care Teams Straight Pin Making Machine Operator Relationship Specialty Start Date End Date Mily Morales MD [address] [place] [address] PCP - General Family Practice 01/26/21
--- OUTSIDE RECORDS SUMMARY | 2024-09-21 20:25 | XMS_ITS | Clinical Summary ---
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 For routine questions regarding patient records, call [phone] during business hours, M-F 8:00 AM - 5:00 PM Central Time. Record requests for emergency care only can be directed to [phone] at any time.[facility] Allergies Active Allergy Reactions Criticality Noted Date Comments Cat Dander Other (see comments) 03/07/2016 Swelling, Breathing, Wheezing Epinephrine Hypotension (Reselec t Reaction) Medium 04/20/2015 Patient stated she had a reaction/hypotension to lidocaine with epinephrine when it was used for a procedure she had. Grass Pollen Other (see comments) 03/07/2016 Wheezing, Sinus Congestion Pollen Extracts Other (see comments) 03/07/2016 Wheezing, Sinus Congestion Ragweed Pollen Other (see comments) 03/07/2016 Wheezing & Sinus Congestion House Dust Other (see comments) 03/07/2016 Nasal congestion Latex Rash Low 04/20/2015 Pt stated mild reaction to latex. Pt wears latex free gloves at work. Mold Other (see comments) 06/16/2014 Ragweed Other (see comments) 03/07/2016 Nasal congestion Medications aspirin (ADULT LOW DOSE ASPIRIN) [address] tablet Take 1 tablet by mouth every morning. 7 Active naproxen sodium (ALEVE) 220 mg capsule Take 1 capsule by mouth every morning. 7 Active calcium carbonate/vitam in D3 (CALCIUM 600 + D,3, ORAL) Take 1 tablet by mouth 2 (two) times a day. 7 Active fexofenadine (WALLACE) 180 mg tablet Take 1 tablet by mouth every morning. 7 Active fluticasone (FLONASE ALLERGY RELIEF) 50 mcg/actuation nasal spray Administer 1 puff into affected nostril(s) 2 (two) times a day. 7 Active omeprazole (PriLOSEC) 20 mg capsule Take 1 capsule by mouth every morning. Takes over the counter 7 Active cyclosporine (RESTASIS OPHT) 2 (two) times a day. 7 Active cyanocobalamin (VITAMIN B-12) 2,000 mcg tablet Take 1 tablet by mouth every morning. 7 Active albuterol (ACCUNEB) 2.5 mg /3 mL nebulizer solution Inhale 2.5 mg. 8 Active albuterol (PROVENTIL HFA,VENTOLIN HFA) 90 mcg/actuation inhaler Inhale. 6 Active ipratropium-alb uterol (DUO-NEB) 0.5-2.5 mg/3 mL nebulizer solution Inhale 3 mL. 7 Active amoxicillin (AMOXIL) 250 mg capsule Take 250 mg by mouth. 8 Active azelaic acid (FINACEA) 15 % gel Apply topically to affected area once daily in the morning. 8 Active bisacodyl (DULCOLAX) 5 mg EC tablet Take by mouth once. 8 Active docusate sodium (COLACE) 100 mg capsule Take 200 mg by mouth. Active EPINEPHrine (EPIPEN) 0.3 mg/0.3 mL injection syringe ADM 0.3 MG IM 1 TIME FOR 1 DOSE 0 8 Active valACYclovir (VALTREX) 1000 mg tablet Take by mouth. 5 Active tretinoin (RETIN-A) 0.025 % gel Apply topically. 8 Active traMADol (ULTRAM) 50 mg tablet TK 1 T PO TID PRF PAIN 1 8 Active naproxen (NAPROSYN) 375 mg tablet Take 375 mg by mouth. 8 Active miscellaneous medical supply misc 2-3 L. 8 Active latanoprost (XALATAN) 0.005 % ophthalmic solution INT 1 GTT IN EACH EYE QHS 4 8 Active levothyroxine (SYNTHROID, LEVOTHROID) 88 mcg tablet Take 88 mcg by mouth daily. 9 Active gabapentin (NEURONTIN) 300 mg capsule Take 300 mg by mouth once. 9 Active fluconazole (DIFLUCAN) 150 mg tablet TK 1 T PO FOR 1 DAY 0 9 Active azithromycin (ZITHROMAX) 250 mg tablet Take 500 mg (2 tabs) by mouth on day 1, then 250 mg (1 tab) daily for days 2-5. 9 Active thyroid, pork, 60 mg tablet Take 60 mg by mouth. 0 Active nitroglycerin (NITRO-BID) 2 % ointment Apply 0.5 inches topically. 0 Active inhalational spacing device (AEROCHAMBER) spacer For home use. 0 Active budesonide (PULMICORT) 0.5 mg/2 mL nebulizer solution Inhale 0.5 mg. 0 Active adapalene (DIFFERIN) 0.1 % gel Apply topically. 0 Active ascorbic acid, vitamin C, (VITAMIN C) 500 mg/5 mL syrup Take 500 mg by mouth daily. Active cefdinir (OMNICEF) 300 mg capsule 1 Active cholecalciferol (VITAMIN D3) 25 mcg (1,000 Unit) capsule Take 1,000 Units by mouth. Active cholecalciferol (VITAMIN D3) 50 mcg (2,000 Unit) tablet Take 2,000 Units by mouth. Active clindamycin (CLEOCIN T) 1 % swab 1 Active rhubarb root extract 4 mg tablet Take by mouth. 1 Active triamcinolone (KENALOG) 0.1 % ointment Apply topically. 0 Active chlorthalidone (HYGROTON) 25 mg tablet Take 12.5 mg by mouth daily. 3 Active potassium chloride (KLOR-CON M) 10 mEq ER tablet 3 Active rosuvastatin (CRESTOR) 5 mg tablet 3 Active verapamiL (VERELAN) 180 mg 24 hr capsule Take 180 mg by mouth every morning. Active hydrOXYzine (VISTARIL) 25 mg capsule Take 25-50 mg by mouth every 6 (six) hours as needed for itching or anxiety. 2 Active methylPREDNISol one (MEDROL DOSEPAK) 4 mg tablet See Admin Instructions. 3 Active ofloxacin (OCUFLOX) 0.3 % ophthalmic solution Administer 1 drop into affected eye(s). 3 Active olopatadine (PATANOL) 0.1 % ophthalmic solution Administer 1 drop into affected eye(s). 3 Active ipratropium-alb uteroL (Combivent Respimat) 20-100 mcg/actuation inhalerIndicati ons:Asthma Severe Persistent (HCC) Inhale 1 puff 4 (four) times a day as needed for shortness of breath (ASTHMA FLARE). 4 g 11 3 Active fluticasone propionate (Flovent HFA) 220 mcg/actuation inhalerIndicati ons:Asthma Severe Persistent (HCC) Inhale 2 puffs 2 (two) times a day as needed (during asthma flare, as yellow zone, add on (piggyback)). 12 g 3 3 Active Ozempic 1 mg/dose (4 mg/3 mL) injection Inject 1 mg under the skin once a week. Active fluticasone propion-salmete roL (Advair HFA) 230-21 mcg/actuation inhalerIndicati ons:Asthma Severe Persistent (HCC) Inhale 2 puffs 2 (two) times a day. Rinse mouth with water after use for aftertaste and incidence of candidiasis do not swallow 12 g 11 4 Active benzonatate (Tessalon Perles) 100 mg capsule Take 200 mg by mouth 3 (three) times a day as needed. 4 Active Accu-Chek Guide test strips USE TO TEST TWICE DAILY Active sulfamethoxazol e-trimethoprim (Bactrim DS) 800-160 mg per tablet Take 1 tablet by mouth 2 (two) times a day. 4 Active mepolizumab (Nucala) 100 mg/mL injectionIndica tions:Asthma Severe Persistent (HCC) Inject 1 mL (100 mg total) under the skin every 28 (twenty-eight) days. 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 Med Refill from Last 3 Months Immunizations Immunization Administration Dates Next Due HepA / HepB 10/23/2009,11/23/2007,09/28/2007 Influenza Split 10/26/2015 PCV13 03/10/2016 PPSV23 12/06/2004 Tdap 10/23/2009 Social History Tobacco Use Types Packs/Day Years Used Date Smoking Tobacco: Never Passive Smoke Exposure: Never Smokeless Tobacco: Never Tobacco Cessation:Counseling Given: Not Answered Alcohol Use Standard Drinks/Week Comments Yes 0 [...] medical appointments or from getting medications? No 11/0 04/2022 In the past 12 months, has [...] PM CDT Legal Sex Female 10:26 PM HEALTH CONSULTANT Gender Identity Female 10/12/2019 12:44 PM CDT Sexual Orientation Straight 10/12/2019 12 :44 PM CDT Last Filed Vital Signs Vital Sign Reading Time Taken Comments Blood Pressure 128/80 12/25/2023 9:37 AM HEALTH CONSULTANT Pulse 96 12/25/2023 9:37 AM HEALTH CONSULTANT Temperature 36.3 C (97.3 F) 12/25/2023 9:37 AM HEALTH CONSULTANT Respiratory Rate 18 12/13/2018 8:37 AM HEALTH CONSULTANT Oxygen Saturation 97% 12/25/2023 9:37 AM HEALTH CONSULTANT Inhaled Oxygen Concentration - - Weight 56.4 kg (124 lb 5.4 oz) 11/27/2023 8:46 A M CDT Height 152.3 cm (4' 11.96) 11/27/2023 8:46 AM C DT Body Mass Index 24.31 11/27/2023 8:46 AM CDT Plan of Treatment Health Maintenance Due Date Last Done Comments CT Colonography 1963 Cervical/Vaginal Cancer Screening 1965 Cologuard 1965 FIT 1965 HIV Screening 1965 Hepatitis C Screening 1965 Pneumococcal vaccine (50+ years) (4 of 4 - PCV20 or PCV21) 03/12/2021 03/12/2016, 03/10/2016, 12/06/2004 Depression Screening (Annual PHQ-2) 02/10/2024 COVID-19 Vaccine (8 - Moderna risk season) 2024 10/11/2023, 2022, 2021, Additional history exists Creatinine Level (Kidney Function Test) 08/20/2024 08/21/2023, 08/05/2023, 04/10/2023, Additional history exists Potassium Level 08/20/2024 08/21/2023, 07/11, 04/10/2023, Additional history exists Sodium Level 08/20/2024 08/21/2023, 07/11, 04/10/2023, Additional history exists Influenza Vaccine (#1) 2024 , 10/10/2022, 2021, Additional history exists Office Visit for Blood Pressure Check / Re-check 12/24/2024 12/25/2023 Thyroid Stimulating Hormone (TSH) test for thyroid function 05/18/2025 05/18/2024, 03/09/2024, 02/19/2024, Additional history exists Mammogram 05/26/2025 05/26/2024, 05/10, 05/21/2023, Additional history exists Fasting Glucose for Diabetes Screening 05/19/2027 05/18/2024, 02/19/2024, 08/21/2023, Additional history exists Lipid (Cholesterol) Screening 01/09/2028 01/08/2023, 04/10/2022, 10/09/2021, Additional history exists DTaP,Tdap,and Td Vaccines (3 - Td or Tdap) 08/07/2030 08/07/2020, 10/23/2009, 03/11/2003 Colonoscopy 06/24/2032 06/24/2022, 12/21/2017 Colorectal Cancer Screening 06/24/2032 Hepatitis A Vaccines Completed 10/23/2009, 11/23/2007, 09/28/2007 Hepatitis B Vaccines Completed 10/23/2009, 11/23/2007, 09/28/2007 Zoster Vaccines Completed 10/03/2021, 08/06/2021 RSV vaccine - (32-36 weeks) or 60+ years Completed 03/09/2024 IPV Vaccines Aged Out No longer eligi ble based on patient's age to complete this topic Medical Devices Implanted Type Area Endocrinology Specialist Device Identifier Shelf Expiration Date Model / Serial / Lot Hardware E.G. Pins/Screws/Ro ds Hardware e.g. pins/screws/ rods Right: Leg Description:Post and screws in right leg Procedures Procedure Name Priority Date/Time Associated Diagnosis Comments COMPREHENSIVE METABOLIC PANEL, S/P Routine 11/08/2020 12:33 PM CDT Hypertension Essential Primary Abnormal Echocardiogram THYROID FUNCTION CASCADE, S Routine 05/25/2017 3:45 PM CDT from Last 3 Months or Most Recently Relevant to Health Maintenance Results * (ABNORMAL) Comprehensive Metabolic Panel (11/08/2020 12:33 PM CDT) Pathologist [facility] Potassium, S 4.4 3.6 - 5.2 mmol/L 11/08/2020 1:47 PM CDT DTL Sodium, S 141 135 - 145 mmol/L 11/08/2020 1:47 PM CDT DTL Chloride, S 106 98 - 107 mmol/L 11/08/2020 1:47 PM CDT DTL Bicarbonate, S 25 22 - 29 mmol/L 11/08/2020 1:47 PM CDT DTL Anion Gap 10 7 - 15 11/08/2020 1:47 PM CDT DTL BUN (Blood Urea Nitrogen), S 20 6 - 21 mg/dL 11/08/2020 1:47 PM CDT DTL Creatinine 0.62 0.59 - 1.04 mg/dL 11/08/2020 1:47 PM CDT DTL eGFR-Non Black/ >90 >=60 mL/min/BS A 11/08/2020 1:47 PM CDT DTL Comment: ----ADDITIONAL INFORMATION---- Estimated GFR calculated using the 2009 CKD_EPI creatinine equation. eGFR-Black/ >90 >=60 mL/min/BS A 11/08/2020 1:47 PM CDT DTL Comment: ----ADDITIONAL INFORMATION---- Estimated GFR calculated using the 2009 CKD_EPI creatinine equation. Calcium, Total, S 9.4 8.6 - 10.0 mg/dL 11/08/2020 1:47 PM CDT DTL Glucose, S 94 70 - 140 mg/dL 11/08/2020 1:47 PM CDT DTL Protein, Total, S 7.1 6.3 - 7.9 g/dL 11/08/2020 1:47 PM CDT DTL Albumin, S 4.6 3.5 - 5.0 g/dL 11/08/2020 1:47 PM CDT DTL Aspartate Aminotransferase (AST), S 37 8 - 43 U/L 11/08/2020 1:47 PM CDT DTL Alkaline Phosphatase, S 129(H) 35 - 104 U/L 11/08/2020 2:25 PM CDT DTL Alanine Aminotransferase (ALT), S 44 7 - 45 U/L 11/08/2020 1:47 PM CDT DTL Bilirubin, Total, S 0.7 <=1.2 mg/dL 11/08/2020 1:47 PM CDT DTL Blood (Blood, Venous) 11/08/2020 12:33 PM CDT 11/08/2020 1:16 PM CDT Ananya Rivas APRNN.P., M.S.N. LAB BLOO D ADD-ON Final Result Performing Organization Address City/[facility]/ZIP Co de Phone Number [facility] [address] DTL [facility] [place] [address] [place] [address] * Thyroid Function [place] (05/25/2017 3:45 PM CDT) TSH, Sensitive 0.7 0.3 - 4.2 MIU/L [facility] 05/25/2017 3:45 PM CDT 05/25/2017 3:45 PM CDT Louie RuizB.S., Ph.D. LAB BLOOD ADD-ON Final Result Performing Organization Address City/[facility]/ZIP Co de Phone Number [facility] [address] from Last 3 Months or Most Recently Relevant to Health Maintenance [facility]
--- OUTSIDE RECORDS SUMMARY | 2024-09-21 20:25 | XMS_ITS | Encounter Summary ---
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 - 03/20/2016 8:44 AM CST Eye General CHIEF COMPLAINT Black floaters, both eyes HISTORY OF PRESENT ILLNESS Black floaters; both eyes, left>right; x 1 month; constant. Spot of blue light; both eyes, left>right in peripheral vision; x a couple of years; intermittent but has become more prominent, especially when Prednisone dose is increased. Dull ache with soreness to touch/pressure sensation behindand around eyes; both eyes, left>right; x 1+ year; occurs daily; was on Restasis but was d/c'd about a year and a half ago. Blurred vision; both eyes, left>right; x 1 year; better some days than others. She's also been getting headaches over the last month. Denies diplopia. SDM: Agree with above. Patient has had episodes of eye redness that also occur with eye and head ache. 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 IMPRESSION / REPORT / PLAN Consult requested by: [id number] #1 Intermittent angle closure glaucoma, both eyes Tmax: unsure, episode yesterday associated with [facility] [place] CCTs: to be performed 03/20/16 Gonio: Grade 1 open, steep iris angle, with compression opens to Grade 3, no PAS +Fam Hx Recent and current steroid use for severe asthma and eosinophilic pneumonia IOP today = Discussed with Dr. Garnett and gonio repeated by Dr. Garnett who agrees with gonio findings and plan for bilateral LPIs today. Plan: -- Discussed R/B/A of LPI with patient today and consent obtained. LPIs performed (see procedure note). IOP checked 1 hour later and was 25/20 by my check with 3+pigment in the AC. 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
--- OUTSIDE RECORDS SUMMARY | 2024-09-21 20:25 | XMS_ITS | Encounter Summary ---
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 - 04/02/2016 7:09 AM CST Eye Subsequent Visit HISTORY OF PRESENT ILLNESS Patient is here for visual field testing. IMPRESSION / REPORT / PLAN 02 Apr 2016 PRASHANT 24-2: Rt: FN 7%, fov thresh 36 dB, no field defects, MD +0.35 dB; Lt: reliable, fov thresh 36 dB, no field defects, MD -0.19 dB CDM Reports - EYESV Id: [id number] Status: Fnl documented in this encounter Plan of Treatment Not on file documented as of this encounter Visit Diagnoses Not on filedocumented in this encounter Additional Health Concerns Infection Onset Date Last Indicated Resolved Time COVID19 Pending 12/13/2020 12/13/2020 12/13/2020 4 :20 PM CDT documented as of this encounter
--- NOTE | 2024-09-21 21:00 | ED.NECK ---
HPI - Neck Pain/Injury General Time Seen by Provider: 21:00 Date Seen: 09/21/24 Chief Complaint: Neck Injury/Pain Stated Complaint: neck pain, pressure in head, nausea Time Seen by Provider: 09/21/24 21:00 Source: patient and RN notes reviewed Mode of arrival: ambulatory Limitations: no limitations History of Present Illness HPI Narrative: This 58-year-old female is accompanied by her coming into the ER with severe right neck pain. Her son has been hospitalized in an ICU with a septic kidney stone, was discharged home today. They had to place a stent, could not remove the stone. He was at [facility]. She was staying in the hospital with him, awoke yesterday and felt like she had slept wrong, maybe had a kink in her right neck. The neck pain has been worsening since yesterday. Today she tried laid down for nap, could not lie on either side of her neck, had to have her help her up. It hurts in her neck to try to lie down. She is now starting to get head pressure in pain. She started to feel nauseated this evening. As I was talking to her in the room, did complain of her right eye vision being funny. She states she has had a history of a stroke before and did bring up the visual change. She has noticed no pain going into either arm, she has not had any fevers or chills. She is on amoxicillin for infection of the tooth in her lower jaw, has a dental implant which they think is infected. 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 There is no injury to her neck, no pain radiating into either arms. She points to the muscle along the right side of the neck that hurts, also hurts in back of her neck, she is getting pressure buildup in the back of her head giving her headache. She notes while she was in the hospital she forgot her medicines, did not take her 81 mg aspirin for few days, states she did take it this morning. She did try heat on her neck without relief. Her stroke in prior records in [facility] speech problems and double vision per report, full recovery was noted. MD complaint: neck pain Related Data Home Medications ?Medication ?Instructions ?Recorded ?Confirmed albuterol sulfate 2.5 mg/3 mL 2.5 mg inhalation PRN 12/08/22 06/20/23 (0.083 %) solution for nebulization albuterol sulfate 90 mcg/actuation inhalation 12/08/22 06/20/23 aerosol inhaler (Ventolin HFA) chlorthalidone 25 mg tablet 25 mg PO DAILY 12/08/22 09/21/24 fluticasone propionate 230 2 puff inhalation BID 12/08/22 06/20/23 mcg-salmeterol 21 mcg/actuation HFA inhaler (Advair HFA) fluticasone propionate 50 intranasal 12/08/22 06/20/23 mcg/actuation nasal spray,suspension gabapentin 300 mg capsule 300 mg PO DAILY 12/08/22 09/21/24 ipratropium 0.5 mg-albuterol 3 mg ml inhalation 12/08/22 06/20/23 (2.5 mg base)/3 mL nebulization soln mepolizumab 100 mg/mL subcutaneous mg subcut 12/08/22 06/20/23 auto-injector (Nucala) naproxen 375 mg tablet 375 mg PO BID 12/08/22 09/21/24 potassium chloride 10 mEq 10 meq PO DAILY 12/08/22 09/21/24 tablet,extended release(part/cryst) aspirin 81 mg tablet,delayed 81 mg PO QDAY 06/20/23 09/21/24 release omeprazole 20 mg capsule,delayed 20 mg PO QDAY 06/20/23 06/20/23 release amoxicillin 500 mg capsule 500 mg PO 3XD 09/21/24 09/21/24 rosuvastatin 20 mg tablet 20 mg PO QPM 09/21/24 09/21/24 semaglutide 0.25 mg or 0.5 mg (2 0.5 mg subcut 09/21/24 mg/3 mL) subcutaneous pen injector (Ozempic) thyroid (pork) 15 mg tablet mg PO 09/21/24 Previous Rx's ?Medication ?Instructions ?Recorded cyclobenzaprine 10 mg tablet 10 mg PO TID PRN muscle spasm #12 09/21/24 tabs diazepam 5 mg tablet (Valium) 5 mg PO TID PRN #6 tabs 09/21/24 Allergies Allergy/AdvReac Type Severity Reaction Status Date / Time latex Allergy Unknown Verified 09/21/24 22:12 Review of Systems Status of ROS: Reports: 6 or more systems reviewed and unremarkable except as noted in History and below [facility] Medical History CVA (cerebral vascular accident) (2017) ?I63.9 - Cerebral infarction, unspecified (ICD-10) Bilateral carpal tunnel syndrome ?G56.03 - Carpal tunnel syndrome, bilateral upper limbs (ICD-10) Headache ?R51.9 - Headache, unspecified (ICD-10) Exacerbation of asthma ?J45.901 - Unspecified asthma with (acute) exacerbation (ICD-10) Chest pain ?R07.9 - Chest pain, unspecified (ICD-10) Asthma ?J45.909 - Unspecified asthma, uncomplicated (ICD-10) Acute strain of neck muscle ?S16.1XXA - Strain of muscle, fascia and tendon at neck level, initial encounter (ICD-10) Mitral valve prolapse ?I34.1 - Nonrheumatic mitral (valve) prolapse (ICD-10) Hemiplegia of left nondominant side due to acute cerebrovascular disease ?I67.89 - Other cerebrovascular disease (ICD-10) ?G81.94 - Hemiplegia, unspecified affecting left nondominant side (ICD-10) Kidney stone ?N20.0 - Calculus of kidney (ICD-10) 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 [Churg-Oliva] (ICD-10) ?D72.18 - Eosinophilia in diseases classified elsewhere (ICD-10) 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.0 - Long's palsy (ICD-10) Surgical History History of carpal tunnel release (12/16/22) ?Z98.890 - Other specified postprocedural states (ICD-10) H/O abdominoplasty ?Z98.890 - Other specified postprocedural states (ICD-10) History of plastic surgery (04/13/19) ?Z98.890 - Other specified postprocedural states (ICD-10) History of bladder suspension procedure ?Z98.890 - Other specified postprocedural states (ICD-10) ?Z87.448 - Personal history of other diseases of urinary system (ICD-10) History of tonsillectomy ?Z90.89 - Acquired absence of other organs (ICD-10) Previous section ?Z98.891 - History of uterine scar from previous surgery (ICD-10) History of hysterectomy ?Z90.710 - Acquired absence of both cervix and uterus (ICD-10) History of bilateral breast reduction surgery (04/13/19) ?Z98.890 - Other specified postprocedural states (ICD-10) History of excision of mass (12/13/15) ?Z98.890 - Other specified postprocedural states (ICD-10) Family History Mother DVT (deep venous thrombosis) Social History Narrative: -Chaitanya 2 special needs children 3 step-children Smoking Status: Never smoker Do you use any of these nicotine containing products: None Second hand tobacco smoke exposure: No Non-prescribed substance use: denies use Are you now , , , , never or living with a partner: Social isolation score (0-1 are the most socially isolated patients): 1 Exam Const: Vital Signs, click to edit/add: Vital Signs - 24 hr 09/21/24 20:30 09/21/24 21:11 09/21/24 21:30 Temperature 98.6 F Pulse Rate 78 Pulse Rate [Pulse Oximeter] 85 Respiratory Rate 20 Blood Pressure 125/87 Blood Pressure [Ri ght Upper Arm] 141/94 H Pulse Oximetry 99 95 96 Oxygen Delivery Me thod Room Air 09/21/24 21:31 09/21/24 22:08 Temperature Pulse Rate 81 75 Pulse Rate [Pulse Oximeter] Respiratory Rate Blood Pressure 139/87 Blood Pressure [Ri ght Upper Arm] Pulse Oximetry 96 98 Oxygen Delivery Me thod This 4-year-old female was sitting up on the bed, holding her neck still. She is very pleasant but looks to be uncomfortable, breathing easily on room air, speech is normal. Symmetrical facial function, pupils equal round reactive, no definite visual field cuts noted. No nystagmus on exam. Speech is normal, breathing easily on room she under exquisitely along the upper sternocleidomastoid muscle, very tender when I attempt to palpate her upper cervical spine and the paraspinous muscles on both sides but right side is maybe more so tender than left. Note no neck masses, no adenopathy. No range of motion of her neck, holding it very still. Upper extremities seem to have normal strength, neurovascular is intact. Lungs are clear, good air entry, no wheezing or crackles. CV regular rate and rhythm, no murmur, normal S1-S2. Abdomen is soft and not tender but she is sitting up on the bed. Patient did ambulate in on her own accord. Documenting provider has reviewed patient's vital signs: yes Course Course ED Course: Reviewed with patient and her that it would be extremely unusual for someone to get meningitis from someone who had a septic kidney stone. We discussed the bacteria amalia whitt involved with a septic kidney stone in usual pathogens. She was in a hospital though there could be the possibility of nosocomial transmission. Not necessarily from her son but potentially from others. Her history has me concerned about ruling out dissection. I do suppose it could be possible that this is a severe presentation of musculoskeletal dysfunction of the cervical spine. Will also get a CK to rule out any myositis of her neck muscles. She does not have any fever and is hemodynamically stable, doubt infectious etiology at this time. She is known to have Churg-Oliva and I do suppose this could be some complicating atypical presentation of vasculitis. Besides labs with inflammatory markers, will proceed with head CT, cervical spine CT and vascular imaging of her head and neck with CT. She really did not want to do IV pain management but reviewed with her that we need to get her comfortable so she can lie flat. Will do IV fentanyl with some Zofran, reviewed with her that this is shorter acting but we do need her to be able to lie flat to get the imaging. Reevaluation(s) Time of Reevaluation #1: 23:06 Reevaluation #1: Have reviewed with patient her imaging. Everything is reassuring. The fentanyl really did help. She does have point tenderness over that sternocleidomastoid muscle but is less anxious see an obviously less painful than when she arrived. She does have an infected dental implant which is improving per her report and is on amoxicillin. There is nothing otherwise on her labs that has me overtly concerned. She has been staying in the ICU with her son and can see where she may have been somewhat mildly dehydrated with elevated lactate. She did come in quite anxious to. She is much more relaxed. We are going to treat for musculoskeletal issues/torticollis. Will give her IV dose of Toradol and 5 mg oral Valium. Will send in a few pills of Valium for the next couple days and then transition to Flexeril. She will use isri-mkf-yeelkqs medicines like Tylenol and ibuprofen at home. We discussed signs and symptoms to watch for like fever, worsening pain. Vital Signs Vital signs: Initial Vital Signs Temperature 98.6 F 09/21/24 20:30 Temperature Source Temporal Artery Scan 09/21/24 20:30 Pulse Rate 85 09/21/24 20:30 Respiratory Rate 20 09/21/24 20:30 Blood Pressure 141/94 H 09/21/24 20:30 Blood Pressure Mean 109 H 09/21/24 20:30 Blood Pressure Position Supine 09/21/24 20:30 Pulse Oximetry 99 09/21/24 20:30 Oxygen Delivery Method Room Air 09/21/24 20:30 Vital Signs Temperature 98.6 F 09/21/24 20:30 Pulse Rate 85 09/21/24 20:30 Respiratory Rate 20 09/21/24 20:30 Blood Pressure 141/94 H 09/21/24 20:30 Pulse Oximetry 99 09/21/24 20:30 Oxygen Delivery Method Room Air 09/21/24 20:30 Temperature 98.6 F 09/21/24 20:30 Pulse Rate 75 09/21/24 22:08 Respiratory Rate 20 09/21/24 20:30 Blood Pressure 139/87 09/21/24 21:31 Pulse Oximetry 98 09/21/24 22:08 Oxygen Delivery Method Room Air 09/21/24 20:30 Medications Administered Medications: Discontinued Medications Generic Name Dose Route Start Last Admin Trade Name Freq PRN Reason Stop Dose Admin Fentanyl 50 mcg 09/21/24 21:16 09/21/24 21:24 Fentanyl 100 Mcg/2 Ml Inj IVP 09/21/24 21:17 50 mcg ONCE ONE Administration Ondansetron HCl 4 mg 09/21/24 21:16 09/21/24 21:24 Ondansetron 2 Mg/Ml Inj IVP 09/21/24 21:17 4 mg ONCE ONE Administration MDM - Neck Pain/Injury Medical Records Attestation: I reviewed the patient's medical records. Medical records narrative: 04/01/2022 patient was in the ER with spells. She also complained of neck pain that had been going. The neck pain was severe pain along both sides of her cervical spine but more so on the right. It radiated to the right scapula. She complained of paresthesias in the scapular area. She noted tingling in her right arm at that time as well. Her symptoms worsened with any movement of her neck. Her spells were near syncope ear woozy, possibly off balance but no vertigo. Lab Data Attestation: I reviewed the patient's lab results. Labs: Lab Results 09/21/24 09/21/24 09/21/24 Range/Units 21:15 21:33 21:35 WBC 11.20 H (4.50-11.00) K/uL RBC 4.99 (4.00-5.20) m/uL Hgb 15.2 (12.0-16.0) gm/dL Hct 44.6 (33.0-51.0) % MCV 89 (80-100) fL MCH 31 (26-34) pg MCHC 34 (32-36) gm/dL RDW Coeff of Sandra 12.8 (11.5-15.5) % Plt Count 180 (140-440) K/uL Neut % (Auto) 65.8 (42.0-72.0) % Lymph % (Auto) 27.1 (20-44) % [place] % (Auto) 6.4 (0.0-11.0) % Eos % (Auto) 0.4 (0.0-7.0) % Baso % (Auto) 0.2 (0.0-3.0) % Neut # (Auto) 7.40 H (1.7-7.0) K/uL Lymph # (Auto) 3.00 H (0.90-2.90) K/uL [place] # (Auto) 0.70 (0.00-0.90) K/UL Eos # (Auto) 0.00 (0.00-0.50) K/uL Baso # (Auto) 0.00 (0.00-0.30) K/uL Abs Immat Gran (auto) 0.00 (0.00-0.30) K/uL Imm/Tot Granulo (auto) 0.1 % ESR 9 (2-20) mm/hr INR 0.94 (0.91-1.10) APTT 28 (23-33) Seconds Sodium 139 (135-149) mmol/L Potassium 3.8 (3.6-5.1) mmol/L Chloride 104 (96-114) mmol/L Carbon Dioxide 25 (20-32) mmol/L Anion Gap 10 (7-15) mEq/L BUN 21 (7-30) mg/dL Creatinine 0.7 (0.5-1.5) mg/dL Estimated Creat Clear 64.49 Estimated GFR 99 ml/min Glucose 130 H (60-115) mg/dL Lactate 2.9 H (0.5-1.9) mmol/L Calcium 10.3 (8.4-10.6) mg/dL Total Bilirubin 1.6 H (0.1-1.5) mg/dL AST 34 (12-35) U/L ALT 40 H (4-35) U/L Alkaline Phosphatase 85 (40-150) U/L Total Creatine Kinase 28 L (41-117) U/L C-Reactive Protein < 0.5 L (0.5-1.0) mg/dL Total Protein 8.2 (6.0-8.3) g/dL Albumin 4.8 (3.3-5.0) g/dL SARS-CoV-2 (PCR) Negative SARS-CoV-2 (Negative) Influenza Type A (PCR) Negative PCR FLU A (Negative) Influenza Type B (PCR) Negative PCR FLU B (Negative) RSV (PCR) Negative PCR RSV (Negative) POC Creatinine 0.7 (0.6-1.3) mg/dl Imaging Data CT scan - head: Attestation: I have reviewed the pertinent imaging results. Radiologist's impression: Patient: BRANDON HOLDER Facility:?[facility] Patient ID:?[id number] Site Patient ID:?[id number]. Site :?1965 Study:?CT-Head WITHOUT-09/21/2024 10:14:35 PM Ordering Physician:?Anamaria Juarez Final Report: INDICATION: Left-sided visual changes with headache and history of CVA. TECHNIQUE: CT head without contrast. COMPARISON: MRI brain 04/01/2022, CT head 04/19/2019. FINDINGS: No acute intracranial hemorrhage. No CT evidence of acute territorial infarct. No hydrocephalus or midline shift. Normal parenchymal volume. Mild chronic microvascular ischemic changes. Mucosal thickening of the ethmoid air cells and bilateral maxillary sinuses. Mastoid air cells are well ventilated. No acute calvarial fracture. IMPRESSION: 1. No acute intracranial abnormality. 2. Mucosal sinus disease. Please note that all CT scans at this facility use dose modulation, iterative reconstruction, and/or weight-based dosing when appropriate to reduce radiation dose to as low as reasonably achievable. Dictated by Murray Saravia MD @ 09/21/2024 10:47:56 PM (Electronic Signature) CT cervical spine: Attestation: I have reviewed the pertinent imaging results. Radiologist's impression: Patient: BRANDON HOLDER Facility:?[facility] Patient ID:?[id number] Site Patient ID:?[id number]. Site :?1965 Study:?CT-Spine Cervical WITHOUT-09/21/2024 10:15:13 PM Ordering Physician:?Anamaria Juarez Final Report: INDICATION: Neck pain. TECHNIQUE: CT cervical spine without contrast. COMPARISON: MRI cervical spine 04/20/2024. FINDINGS: No acute fracture or suspicious osseous lesion. Chronic deformity of the C1 arch on the left. Atlantoaxial and atlantooccipital alignment are preserved with prominent atlantoaxial degenerative changes. The cervical vertebral bodies maintain their normal heights with preserved lordosis. There is minimal anterolisthesis at C5-C6. Multilevel spondylosis and degenerative disc disease is present with multifocal disc space height loss and multilevel facet arthropathy, asymmetric to the left. Paraspinal soft tissues are grossly within normal limits. No advanced canal stenosis. Multilevel foraminal narrowing grossly unchanged compared to prior MRI. Visualized portions of the lungs are clear. IMPRESSION: No acute abnormality of the cervical spine. Please note that all CT scans at this facility use dose modulation, iterative reconstruction, and/or weight-based dosing when appropriate to reduce radiation dose to as low as reasonably achievable. Dictated by Murray Saravia MD @ 09/21/2024 10:54:22 PM (Electronic Signature) CT- Other: Attestation: I have reviewed the pertinent imaging results. Radiologist's impression: Patient: BRANDON HOLDER Facility:?[facility] Patient ID:?[id number] Site Patient ID:?[id number]. Site :?1965 Study:?CT-Head Angio 95CC ISOVUE 370 NONACUTE-09/21/2024 10:14:57 PM Ordering Physician:?Anamaria Juarez Preliminary Report: Preliminary findings/impression: : No large vessel occlusion or high-grade vascular stenosis within the head or neck. No CT evidence of acute vascular injury. Dictated by Murray Saravia MD @ 09/21/2024 10:56:45 PM Read by:?Murray Saravia MD @09/21/2024 10:56:51 PM Patient: BRANDON HOLDER Facility:?[facility] Patient ID:?[id number] Site Patient ID:?[id number]. Site :?1965 Study:?CT-Neck Angio Angio 95CC ISOVUE 370 NONACUTE-09/21/2024 10:15:26 PM Ordering Physician:?Anamaria Juarez Preliminary Report: Preliminary findings/impression: : No large vessel occlusion or high-grade vascular stenosis within the head or neck. No CT evidence of acute vascular injury. Dictated by Murray Saravia MD @ 09/21/2024 10:57:22 PM Read by:?Murray Saravia MD @09/21/2024 10:57:27 PM Discharge Plan Discharge Clinical Impression: Sternocleidomastoid muscle tenderness, Neck pain Patient Disposition: Home, Self-Care Condition: Stable Instructions: Acute Neck Pain (ED), Spasmodic Torticollis (ED) Additional Instructions: Can try ice or heat, use whichever makes your neck feel better. Can continue with wwmt-[id number] medicines like Tylenol, ibuprofen or leave, follow bottle directions for dosing. Should not use both Aleve and ibuprofen together as these are NSAIDs. Did write for Valium to use initially for most potent muscle relaxation. Can transition to Flexeril as you feel better. If you have worsening symptoms, develops fevers, have further concerns, please seek re-evaluation. I would anticipate that this may take anywhere from 3 days to a week to feel completely better. Activity Level: Activity as Tolerated Prescriptions: New cyclobenzaprine 10 mg tablet 10 mg PO TID PRN (Reason: muscle spasm) Qty: 12 0RF diazepam [Valium] 5 mg tablet 5 mg PO TID PRNQty: 6 0RF No Action albuterol sulfate [Ventolin HFA] 90 mcg/actuation HFA aerosol inhaler inhalation Nucala 100 mg/mL auto-injector subcut fluticasone propion-salmeterol [Advair HFA] 230-21 mcg/actuation HFA aerosol inhaler 2 puff inhalation BID fluticasone propionate 50 mcg/actuation spray,suspension intranasal Patient Comments: [NO ORIGINAL SIG] potassium chloride 10 mEq tablet,ER particles/crystals 10 meq PO DAILY gabapentin 300 mg capsule 300 mg PO DAILY ipratropium-albuterol 0.5 mg-3 mg(2.5 mg base)/3 mL solution for nebulization inhalation Patient Comments: [NO ORIGINAL SIG] albuterol sulfate 2.5 mg /3 mL (0.083 %) solution for nebulization 2.5 mg inhalation PRN Patient Comments: [NO ORIGINAL SIG] naproxen 375 mg tablet 375 mg PO BID chlorthalidone 25 mg tablet 25 mg PO DAILY aspirin 81 mg tablet,delayed release (DR/EC) 81 mg PO QDAY omeprazole 20 mg capsule,delayed release(DR/EC) 20 mg PO QDAY amoxicillin 500 mg capsule 500 mg PO 3XD rosuvastatin 20 mg tablet 20 mg PO QPM thyroid (pork) 15 mg tablet PO Ozempic 0.25 mg or 0.5 mg (2 mg/3 mL) pen injector 0.5 mg subcut Follow Up/Referrals: Mily Morales MD [Primary Care Provider, Family Practice] Stand Alone Forms: [employer] Info Instructions
--- NOTE | 2024-09-21 21:10 | CT_ITS ---
Patient: BRANDON HOLDER Facility:?[facility] Patient ID:?[id number] Site Patient ID:?[id number]. Site :?1965 Study:?CT-Head Angio 95CC ISOVUE 370 NONACUTE-09/21/2024 10:14:57 PM Ordering Physician:Karol Juarez Final Report: INDICATION: Headache, neck pain. TECHNIQUE: CTA head using intravenous contrast with bolus tracking, 3D angiographic rendering using maximum intensity projection (MIP) and images permanently archived. CTA neck using intravenous contrast with bolus tracking, 3D angiographic rendering using maximum intensity projection (MIP) and images permanently archived. FINDINGS: CTA head: There is normal opacification of the intracranial vasculature. There is no large vessel occlusion or significant intracranial stenosis. No aneurysm is identified. CTA neck: There is no significant carotid artery stenosis or dissection. There is no significant vertebral artery stenosis or dissection. IMPRESSION: Unremarkable head CTA. Unremarkable neck CTA. Please note that all CT scans at this facility use dose modulation, iterative reconstruction, and/or weight-based dosing when appropriate to reduce radiation dose to as low as reasonably achievable. Dictated by Rick Chappell MD @ 09/22/2024 5:45:10 AM Signed by:?Rick Chappell MD @09/22/2024 5:45:10 AM (Electronic Signature)
--- NOTE | 2024-09-21 21:11 | CRLHL7_ITS ---
For Patients: As a result of the Century Cures Act, medical imaging exams and procedure reports are released immediately into your electronic medical record. You may view this report before your referring provider. If you have questions, please contact your health care provider. INDICATION: Neck pain. TECHNIQUE: CT cervical spine without contrast. COMPARISON: MRI cervical spine 04/20/2024. FINDINGS: No acute fracture or suspicious osseous lesion. Chronic deformity of the C1 arch on the left. Atlantoaxial and atlantooccipital alignment are preserved with prominent atlantoaxial degenerative changes. The cervical vertebral bodies maintain their normal heights with preserved lordosis. There is minimal anterolisthesis at C5-C6. Multilevel spondylosis and degenerative disc disease is present with multifocal disc space height loss and multilevel facet arthropathy, asymmetric to the left. Paraspinal soft tissues are grossly within normal limits. No advanced canal stenosis. Multilevel foraminal narrowing grossly unchanged compared to prior MRI. Visualized portions of the lungs are clear. IMPRESSION: No acute abnormality of the cervical spine. Please note that all CT scans at this facility use dose modulation, iterative reconstruction, and/or weight-based dosing when appropriate to reduce radiation dose to as low as reasonably achievable. Dictated by Murray Saravia MD @ 09/21/2024 10:54:22 PM (Electronically Signed)
--- NOTE | 2024-09-21 21:11 | CRLHL7_ITS ---
For Patients: As a result of the Century Cures Act, medical imaging exams and procedure reports are released immediately into your electronic medical record. You may view this report before your referring provider. If you have questions, please contact your health care provider. INDICATION: Left-sided visual changes with headache and history of CVA. TECHNIQUE: CT head without contrast. COMPARISON: MRI brain 04/01/2022, CT head 04/19/2019. FINDINGS: No acute intracranial hemorrhage. No CT evidence of acute territorial infarct. No hydrocephalus or midline shift. Normal parenchymal volume. Mild chronic microvascular ischemic changes. Mucosal thickening of the ethmoid air cells and bilateral maxillary sinuses. Mastoid air cells are well ventilated. No acute calvarial fracture. IMPRESSION: 1. No acute intracranial abnormality. 2. Mucosal sinus disease. Please note that all CT scans at this facility use dose modulation, iterative reconstruction, and/or weight-based dosing when appropriate to reduce radiation dose to as low as reasonably achievable. Dictated by Murray Saravia MD @ 09/21/2024 10:47:56 PM (Electronically Signed)
[2024-09-21 21:24] LABS: Lactate* 2.9 mmol/L (0.5-1.9)
[2024-09-21] MEDS: ONDANSETRON 2 MG/ML inj 4 MG IVP (21:24)
[2024-09-21 21:34] LABS: Creatinine, Point-of-Care* 0.7 mg/dl (0.6-1.3)
[2024-09-21 21:34] LABS: Hematocrit 44.6 % (33.0-51.0); Hemoglobin* 15.2 gm/dL (12.0-16.0); Immature Granulocytes Pct Auto 0.1 %; Mean Corpuscular HGB Conc 34 gm/dL (32-36); Mean Corpuscular Hemoglobin 31 pg (26-34); Mean Corpuscular Volume 89 fL (80-100); RDW Coefficient of Variation % 12.8 % (11.5-15.5); Red Blood Count 4.99 m/uL (4.00-5.20); White Blood Count* 11.20 K/uL (4.50-11.00)
[2024-09-21 21:37] LABS: Immature Granulocytes Abs Auto 0.00 K/uL (0.00-0.30); Lymphocytes Absolute Auto 3.00 K/uL (0.90-2.90); Slide Review Reflex No
[2024-09-21 21:46] LABS: Albumin* 4.8 g/dL (3.3-5.0); Chloride* 104 mmol/L (96-114); Sodium* 139 mmol/L (135-149)
[2024-09-21 21:47] LABS: INR 0.94 (0.91-1.10); Potassium* 3.8 mmol/L (3.6-5.1); Prothrombin Time 13.4 Seconds
[2024-09-21 21:49] LABS: Alanine Aminotransferase* 40 U/L (4-35); Alkaline Phosphatase* 85 U/L (40-150); Anion Gap 10 mEq/L (7-15); Aspartate Amino Transferase* 34 U/L (12-35); Bilirubin Total* 1.6 mg/dL (0.1-1.5); Blood Urea Nitrogen* 21 mg/dL (7-30); Carbon Dioxide* 25 mmol/L (20-32); Creatine Kinase* 28 U/L (41-117); Creatinine* 0.7 mg/dL (0.5-1.5); Est. Creatinine Clearance* 64.49; Estimated Glomerular Filt Rate 99 ml/min; Total Protein* 8.2 g/dL (6.0-8.3)
[2024-09-21 21:50] LABS: Calcium* 10.3 mg/dL (8.4-10.6); Glucose* 130 mg/dL (60-115)
[2024-09-21 22:20] LABS: Erythrocyte SedimentationRate* 9 mm/hr (2-20)
[2024-09-21 22:22] LABS: PCR FLU A Negative PCR FLU A (Negative); PCR FLU B Negative PCR FLU B (Negative); PCR RSV Negative PCR RSV (Negative); SARS PCR* Negative SARS-CoV-2 (Negative)
== END 2024-09-21 23:33 | disposition home or self-care (01) ==
PROVIDERS: Emergency Provider Family Medicine; PCP Family Medicine
DX: M54.2 Cervicalgia (principal); M79.18 Myalgia, other site
CPT/HCPCS: 36415; 70450; 70496; 70498; 72125; 80053; 82550; 82565; 83605; 85025; 85610; 85651; 85730; 86140; 87631; 94761; 96374; 96375; 99284; 99285; J1885; J2405; J3010; Q9967